=== PATIENT | male | born 1950 | race Caucasian/White ===

== ENCOUNTER 2016-09-04 17:27 | Observation (INO) | payer OTHER ==
[~2016-09-04] VITALS: Ht 165.1 cm; Wt 93.5 kg
[2016-09-04 18:19] LABS: POINT-OF-CARE METER ID UU14100415
[2016-09-04 18:28] LABS: HEMATOCRIT 40.7 % (38.0-50.0); MCHC 32.9 G/DL (30.0-36.0); MCV 78.9 FL (86-99); MEAN PLAT.VOLUME 8.7 uM^3 (9.0-12.4); PLATELET COUNT 200 K/uL (156-360); RBC DIS.WIDTH-CV 14.7 % (11.8-14.6); RBC DIS.WIDTH-SD 42.2 % (39-53); RED BLOOD COUNT 5.16 M/uL (4.00-5.50); WHITE BLOOD COUNT 8.4 K/uL (4.1-10.2)
[2016-09-04 18:38] LABS: CHLORIDE 103 mEq/L (99-109)
[2016-09-04 18:39] LABS: POTASSIUM 4.2 mEq/L (3.7-5.4); SODIUM 136 mEq/L (136-147)
[2016-09-04 18:40] LABS: GLUCOSE 90 mg/dL (70-99)
[2016-09-04 18:42] LABS: ANION GAP 11 MEQ/L (2-14)
[2016-09-04 18:45] LABS: UREA NITROGEN (BUN) 19 mg/dL (9-23)
[2016-09-04 18:46] LABS: GFR ESTIMATE (CALCULATED) > 59 mL/min/
[2016-09-04 18:51] LABS: TROP-I INTERPRETATION NEGATIVE; TROPONIN-I < 0.01 ng/mL (0.0-0.30)
[2016-09-04] MEDS ORDERED: HUMALOG100 UNIT/2 SC (20:09)
[2016-09-04] MEDS ORDERED: METFORMIN HCL500 MG PO (20:10)
[2016-09-04] MEDS ORDERED: LANTUS 3 M100 UNITS1 SC (20:10)
[2016-09-04] MEDS ORDERED: ATORVASTATIN CA10 MG PO (20:11)
[2016-09-04] MEDS ORDERED: LISINOPRIL20 MG PO (20:11)
[2016-09-04] MEDS ORDERED: ASPIRIN BUFFER325 MG PO (20:11)
[2016-09-04] MEDS ORDERED: OMEPRAZOLE40 M1 PO (20:12)
[2016-09-04 22:23] LABS: HDL CHOLESTEROL 42 MG/DL (Desirable>=40); LDL CHOLESTEROL 87 mg/dL (Desirable<100); NON-HDL CHOLESTEROL 115 mg/dL (Desirable<160); TOTAL CHOLESTEROL 157 mg/dL (Desirable<200); TRIGLYCERIDES 141 MG/DL (Normal: <150)
[2016-09-04 23:21] LABS: SERUM ETHYL ALCOHOL < 10 mg/dL
[2016-09-04 23:39] VITALS: BP 136/65
[2016-09-04 23:58] LABS: POINT-OF-CARE METER ID UU13113831
[2016-09-05 03:45] VITALS: BP 135/95
[2016-09-05 07:03] LABS: Estimated Average Glucose 220 mg/dL (70-123); HEMOGLOBIN A1c (GLYCOHEMOGLOB) 9.3 % HGB (Below 5.7)
[2016-09-05 07:45] VITALS: BP 144/79
[2016-09-05 08:15] LABS: POINT-OF-CARE METER ID UU13113831
[2016-09-05 12:24] LABS: POINT-OF-CARE METER ID UU13113831
[2016-09-05 12:27] VITALS: BP 144/70
[2016-09-05 13:33] LABS: AMPHETAMINES QUANT VALUE 0 NG/ML; BARBITUATES QUANT VALUE 0 NG/ML; BENZODIAZEPINES QUANT VALUE 0 NG/ML; BENZODIAZEPINES, URINE SCREEN Negative (200 ng/mL); MARIJUANA QUANT VALUE 0 NG/ML; OPIATES QUANTITATIVE VALUE 0 NG/ML; PHENCYCLIDINE QUANT VALUE 0 NG/ML
[2016-09-05] MEDS ORDERED: ATORVASTATIN CA10 MG PO (14:38)
[2016-09-05] MEDS ORDERED: THERAGRAN1 TABLET PO (14:38)
== END 2016-09-05 15:04 | disposition home or self-care (01) ==
LOC: EME 17:27 → 5WEST 21:36 → EDOF 21:36 → 5WEST 23:02
PROVIDERS: Emergency Medicine; Family Medicine; Hospitalist; Physician Assistant Medical
DX: G45.4 Transient global amnesia (principal); R51 Headache; E11.649 Type 2 diabetes mellitus with hypoglycemia without coma; Z79.4 Long term (current) use of insulin; I10 Essential (primary) hypertension; K21.9 Gastro-esophageal reflux disease without esophagitis; F10.20 Alcohol dependence, uncomplicated; K76.0 Fatty (change of) liver, not elsewhere classified
CPT/HCPCS: 70450; 70551; 80048; 80061; 80306 90; 82948; 83036; 84484; 85027; 93005; 93306; 93880; 99281; 99285; G0378; G0480; J1200; J1650; J1885; J2765; J2930; J3030; J7030